=== PATIENT | male | born 1990 | race African-American/Black ===

== ENCOUNTER 2017-08-27 18:14 | Emergency (ER) | payer OTHER, SELFPAY ==
[2017-08-27 18:16] VITALS: BP 129/77; PULSE 85; RESP 16; TEMP 36.4; O2SAT 99; BMI 39.3
--- NOTE | 2017-08-27 18:40 | RAD_ITS ---
STUDY: X-RAY - LEFT WRIST REASON FOR EXAM: Male, 27 years old. Injury to wrist. Pain and swelling. TECHNIQUE: 3 view(s) of the wrist were obtained. COMPARISON: None. FINDINGS: Normal visualized distal radius and ulna. Normal radiocarpal articulation. Normal distal radioulnar articulation. Normal carpal bones. Normal carpal articulations. Normal carpometacarpal articulation of the thumb. Normal second through fifth carpometacarpal articulations. Normal visualized metacarpal bones. The soft tissue structures are unremarkable. RAD/Wrist min 3 Views IMPRESSION: No significant abnormality identified. Electronically Signed: Constantino Young MD at 19:21 EDT , Service support ,
--- NOTE | 2017-08-27 18:41 | ED.DCSUM_ITS ---
- ER Visit Summary Date of Service: 08/27/17 Chief Complaint: Left wrist pain injury History of Present Illness: The patient is a 27 M left hand dominant. At 13 years old he did have a left wrist fracture. He has never needed surgery on his left wrist. Today at work he was helping someone carry a table she accidentally dropped her into the table and it twisted and injured his left wrist. He denies any other injuries. Complaining of pain. Physical Examination: Well-appearing young male. Vital signs are stable afebrile. No distress. H EENT exam unremarkable neck nontender. Lungs clear to auscultation bilaterally. Heart regular rate and rhythm no murmur. Chest nontender. Abdomen soft nontender. He is moving all 4 extremities. They are neurovascularly intact. Specifically left shoulder, elbow and hand are nontender neurovascular intact strong radial pulse. He has mild pain on palpation to both the radial and ulnar side of his wrist. There is no significant swelling. He is able do flexion extension but has pain with radial and ulnar deviation. There is no gross bony deformity. Skin is intact. Neurologic exam normal. Test Results: Left wrist x-ray views read by myself shows no acute abnormality. No fracture nor dislocation. Emergency Department Course and Treatment: I did go over the films with the patient. Treatment Plan: Ice and elevate. Motrin for pain and inflammation. Increase activity as tolerated. Disposition: Discharge Impression: Left wrist sprain Worker's comp injury This note was generated with [employer] dictation software. It may contain incorrect words, spelling, and punctuation that were not noted in review of the chart prior to signing ED Disposition - Plan for ED Patient: Disposition: Home or Assisted Living Chief Complaint: Upper Extremity Injury Instructions: ED Sprain Wrist [facility]errals: [facility] - 1 Week if not improving Additional Instructions: Ice and elevate left wrist to decrease pain and swelling. Motrin for pain and swelling. Increase activity as tolerated.
[2017-08-27 19:19] VITALS: RESP 16
== END 2017-08-27 19:27 | disposition home or self-care (01) ==
PROVIDERS: Emergency Provider Emergency Medicine
DX: S63.502A Unspecified sprain of left wrist, initial encounter (principal); F41.9 Anxiety disorder, unspecified; Z72.0 Tobacco use; Z79.899 Other long term (current) drug therapy; X50.1XXA Overexertion from prolonged static or awkward postures, initial encounter; Y93.89 Activity, other specified; Y92.89 Other specified places as the place of occurrence of the external cause; Y99.0 Civilian activity done for income or pay
CPT/HCPCS: 73110; 99282